=== PATIENT | female | born 1960 | race Caucasian/White ===

== ENCOUNTER 2018-08-17 07:18 | Day surgery (SDC) | payer OTHER ==
[~2018-08-17 07:18] MED LIST: Buffered Lidocaine 0.9% SYRIN* 5 ML/SYR SYRINGE INTRADERM ONE; Famotidine IV* 10 MG/ML 2 ML (20 mg) IV SLOW PU ONE
[2018-08-17] MEDS ORDERED: Lidocaine 2.5%/Prilocain 2.5%* 5 GM TUBE ONE (07:34)
[2018-08-17] MEDS ORDERED: ceFAZolin 2 GM PREMIX in ORs 2 GM/50 ML BAG IVPB ONE (09:08)
[2018-08-17] MEDS ORDERED: Midazolam* 1 MG/ML 2 ML VIAL (2 MG) ONE (09:24)
[2018-08-17] MEDS ORDERED: Propofol* 10 MG/ML 20 ML BTL IV PUSH ONE (09:24)
[2018-08-17] MEDS ORDERED: Lidocaine 2% PF * 5 ML VIAL ONE (09:24)
[2018-08-17] MEDS ORDERED: fentaNYL* 50 MCG/ML 5 ML VIAL (250 MCG VIAL) ONE (09:24)
--- NOTE | 2018-08-17 09:46 | RAD ---
INDICATION: Lower inner quadrant RIGHT breast cancer. PROCEDURE: The risks and benefits of the procedure were explained to the patient. Written informed consent was obtained. 0.325 mCi total of filtered sulfur colloid were injected intradermal in 3 divided doses along the areolar margin flanking the lower inner quadrant tumor site. Spot images?were?obtained?of?the?thorax with the ipsilateral arm over the head. Solitary ipsilateral axillary sentinal node marked on the skin utilizing a point source. IMPRESSION: Successful RIGHT breast lymphoscintigraphy.
[2018-08-17] MEDS ORDERED: Ondansetron INJ* 2 MG/ML VIAL ONE (09:57)
[2018-08-17] MEDS ORDERED: Levalbuterol 1.25MG/0.5ML NEB INH ONE (10:56)
[2018-08-17] MEDS ORDERED: Levalbuterol 1.25MG/0.5ML NEB ONE (11:01)
[2018-08-17] MEDS ORDERED: Famotidine IV* 10 MG/ML 2 ML (20 mg) ONE (11:01)
[2018-08-17] MEDS ORDERED: Bupivacaine 0.5% SDV PF* 30ML VIAL ONE (11:10)
[2018-08-17] MEDS ORDERED: Lidocain 1% EPI 1:100,000 * 30 ML MDV ONE (11:10)
[2018-08-17] MEDS ORDERED: Bupivacaine 0.25% W/EPI* 10 ML SDV ONE ×2 (11:10→12:09)
[2018-08-17] MEDS ORDERED: Methylene Blue 0.5 %* 50 MG/10 ML AMP IV ONE (11:10)
[2018-08-17] MEDS ORDERED: Lidocaine 1% INJ* 10 MG/ML 30 ML SDV ONE (11:10)
[2018-08-17] MEDS ORDERED: Acetaminophen TAB* 325 MG PO PRN (11:15)
[2018-08-17] MEDS ORDERED: Morphine VIAL* 4 MG/ML VIAL (1 ml vial) IV PRN (11:15)
[2018-08-17] MEDS ORDERED: fentaNYL* 50 MCG/ML 2 ML VIAL (100 MCG VIAL) IV PRN (11:15)
[2018-08-17] MEDS ORDERED: Ketorolac INJ* 30 MG/ML 1 ML VIAL IV PRN (11:15)
[2018-08-17] MEDS ORDERED: HYDROcodone/ACETAMIN 5-325 MG* 1 TAB PO PRN (11:15)
[2018-08-17] MEDS ORDERED: Ondansetron INJ* 2 MG/ML VIAL IV PRN (11:15)
[2018-08-17] MEDS ORDERED: Naloxone* 0.4 MG/ML 1 ML VIAL IV PRN (11:15)
[2018-08-17] MEDS ORDERED: DiMENhydriNATE IV* 50 MG/ML VIAL IV PUSH PRN (11:15)
[2018-08-17] MEDS ORDERED: Dexamethasone IV* 4 MG/ML 1 ML (4 MG) ONE (12:14)
[2018-08-17 13:57] VITALS: BP 128/76
--- NOTE | 2018-08-18 02:59 | OP ---
CC: Penelope Hernandez NP * DATE OF OPERATION: 08/17/18 - [facility] DATE OF : 60 SURGEON: Elaine Sanchez MD MANAGER CODING: Carmen King NP PRE-OP DIAGNOSIS: Right breast cancer. POST-OP DIAGNOSIS: Right breast cancer. OPERATIVE PROCEDURE: Excision of right breast cancer and sentinel lymph node biopsy. INDICATIONS: Ms. Coleman is a 58-year-old woman recently diagnosed with breast cancer prompting the plan for surgical intervention. On the morning of surgery , she underwent sentinel lymph node localization without difficulty. DESCRIPTION OF PROCEDURE: She was then brought to the operating room. She was placed on the OR table in the supine position and given general anesthesia. The right breast and axilla were prepped and draped in the usual sterile fashion. A curvilinear incision was made encompassing some skin puckering on the lower inner aspect of the right breast where a palpable mass could be felt. Subcutaneous tissue was then divided with electrocautery to excise the mass of tissue. This was marked in the usual fashion and handed off as a specimen. Hemostasis was assured with electrocautery and then closure was accomplished with 3-0 Vicryl in the subcutaneous layer and the skin was closed with 4-0 Vicryl in a subcuticular fashion. Attention was then turned to the axilla. Here, using the navigator, the approximate location of the sentinel node was identified and infiltrated with local anesthetic. A curvilinear incision was made and subcutaneous tissue was divided with electrocautery down to the level of the axillary fat pad. The fat pad was grasped and again, the navigator was used to identify location of the sentinel node. Its in situ counts were very elevated around 2300. It was excised using clips to control small lymphatic and blood vessels that approached the gland. Once it was out, it had ex vivo counts around 4500 and the axillary bed counts were less than 10. The wound was irrigated with saline and some local was instilled both into the axillary wound and to the breast wound and closure was accomplished with 3- 0 Vicryl in the subcutaneous layer and the skin was closed with 4-0 Vicryl in a subcuticular fashion. Steri-Strips and a dry sterile dressing were applied to both incisions. All sponge and instrument counts were correct. The patient tolerated the procedure well and was transferred to Recovery in a stable condition. [id number]/[facility] #: [id number] MTDD
== END 2018-08-17 14:15 | disposition home or self-care (01) ==
LOC: SDS 07:18
PROVIDERS: ATTEND Surgery
DX: C50.311 Malignant neoplasm of lower-inner quadrant of right female breast (principal); R73.01 Impaired fasting glucose; I10 Essential (primary) hypertension; E78.5 Hyperlipidemia, unspecified; J44.9 Chronic obstructive pulmonary disease, unspecified; Z72.0 Tobacco use
CPT/HCPCS: 78195; 88307; 88342; 88360; A9270-GY; A9541; J0690; J1100; J2250; J2405; J2704; J3010